=== PATIENT | female | born 1960 | race African-American/Black ===

== ENCOUNTER 2017-04-08 23:52 | Emergency (ER) | payer MEDICAID, OTHER ==
[~2017-04-08] VITALS: Ht 152.4 cm; Wt 59.0 kg
[2017-04-09 01:23] LABS: CLARITY URINE CLOUDY (CLEAR); COLOR URINE YELLOW (YELLOW); KETONES URINE NEGATIVE (NEGATIVE); LEUKOCYTE ESTERASE URINE 3+ (NEGATIVE); NITRITE URINE NEGATIVE (NEGATIVE); OCCULT BLOOD URINE 1+ (NEGATIVE); PH URINE 5.5 (4.5-8.0); PROTEIN URINE NEGATIVE (NEGATIVE); SPECIFIC GRAVITY URINE 1.009 (1.005-1.030); UROBILINOGEN URINE 0.2 E.U./dL (0.2-1.0)
[2017-04-09] MEDS ORDERED: KETOROLAC 60MG/2ML VIAL IM ONE (02:30)
[2017-04-09] MEDS ORDERED: HYDROCODONE/ACETAMINOPHEN 5/325MG TABLET PO ONE (02:30)
[2017-04-09] MEDS ORDERED: LIDOCAINE HCL 4% CREAM 76GM TUBE TP ONE (03:00)
[2017-04-09 04:20] VITALS: BP 138/81
== END 2017-04-09 04:35 | disposition home or self-care (01) ==
LOC: ER 23:52
DX: N39.0 Urinary tract infection, site not specified (principal); Z20.2 Contact with and (suspected) exposure to infections with a predominantly sexual mode of transmission; I10 Essential (primary) hypertension; J45.909 Unspecified asthma, uncomplicated; F17.210 Nicotine dependence, cigarettes, uncomplicated; F12.10 Cannabis abuse, uncomplicated
CPT/HCPCS: 81001; 87077; 87086; 87186; 96372; 99284; J1885